=== PATIENT | female | born 1990 | race Caucasian/White ===

== ENCOUNTER → 2024-05-16 16:58 | Outpatient (REF) | payer OTHER, SELFPAY | LOC: RAD 16:58 | PROVIDERS: ATTENDING PHYSICIAN Obstetrics & Gynecology | DX: Z34.90 Encounter for supervision of normal pregnancy, unspecified, unspecified trimester (principal) | CPT/HCPCS: 76801 ==

== ENCOUNTER → 2024-06-11 09:55 | Outpatient (REF) | payer OTHER, SELFPAY | LOC: PNTC 09:55 | PROVIDERS: ATTENDING PHYSICIAN Obstetrics & Gynecology | DX: Z36.0 Encounter for antenatal screening for chromosomal anomalies (principal); Z36.82 Encounter for antenatal screening for nuchal translucency | CPT/HCPCS: 36415; 76801; 76813 ==

== ENCOUNTER → 2024-08-04 15:56 | Outpatient (REF) | payer OTHER, SELFPAY | LOC: PNTC 15:56 | PROVIDERS: ATTENDING PHYSICIAN Obstetrics & Gynecology | DX: O98.519 Other viral diseases complicating pregnancy, unspecified trimester (principal); U07.1 COVID-19 | CPT/HCPCS: 76811; 93976 ==

== ENCOUNTER → 2024-08-29 15:07 | Outpatient (REF) | payer OTHER, SELFPAY | LOC: RAD 15:07 | PROVIDERS: ATTENDING PHYSICIAN Obstetrics & Gynecology | DX: O26.859 Spotting complicating pregnancy, unspecified trimester (principal) | CPT/HCPCS: 76815 ==

== ENCOUNTER → 2024-09-17 07:01 | Outpatient (REF) | payer OTHER, SELFPAY | LOC: PNTC 07:01 | PROVIDERS: ATTENDING PHYSICIAN Obstetrics & Gynecology | DX: U07.1 COVID-19 (principal); O98.519 Other viral diseases complicating pregnancy, unspecified trimester; O43.219 Placenta accreta, unspecified trimester | CPT/HCPCS: 76816 ==

== ENCOUNTER → 2024-10-27 07:02 | Outpatient (REF) | payer OTHER, SELFPAY | LOC: PNTC 07:02 | PROVIDERS: ATTENDING PHYSICIAN Obstetrics & Gynecology | DX: O98.519 Other viral diseases complicating pregnancy, unspecified trimester (principal) | CPT/HCPCS: 76816 ==

== ENCOUNTER → 2024-12-15 15:16 | Outpatient (REF) | payer OTHER, SELFPAY | LOC: PNTC 15:16 | PROVIDERS: ATTENDING PHYSICIAN Obstetrics & Gynecology | DX: O36.8190 Decreased fetal movements, unspecified trimester, not applicable or unspecified (principal) | CPT/HCPCS: 59025; 76815 ==

== ENCOUNTER 2024-12-17 17:14 | Observation (INO) | payer OTHER, SELFPAY ==
[2024-12-17 17:27] VITALS: BP 115/71; BMI 33.9
== END 2024-12-17 18:09 | disposition home or self-care (01) ==
LOC: LDRP 17:14
PROVIDERS: ADMITTING PHYSICIAN Student in an Organized Health Care Education/Training Program; FAMILY PHYSICIAN Obstetrics & Gynecology
DX: O47.1 False labor at or after 37 completed weeks of gestation (principal); Z3A.39 39 weeks gestation of pregnancy; O34.03 Maternal care for unspecified congenital malformation of uterus, third trimester; Q51.810 Arcuate uterus; O34.13 Maternal care for benign tumor of corpus uteri, third trimester; D25.9 Leiomyoma of uterus, unspecified; Z91.040 Latex allergy status; Z86.16 Personal history of COVID-19; Z83.3 Family history of diabetes mellitus
CPT/HCPCS: 36415; 86850; 86900; 86901; G0378

== ENCOUNTER 2024-12-18 00:06 | Inpatient (IN) | payer OTHER, SELFPAY ==
[2024-12-18 00:26] VITALS: BP 123/73; BMI 33.9
[2024-12-18] MEDS: LR 1000 IV ×3 (00:45→12:09)
[2024-12-18] MEDS: STADOL 1 MG IV ×2 (01:06→03:46)
[2024-12-18 01:15] LABS: % Basophils 0.3 % (0-2); % Eosinophils 0.7 % (0-6); % Immature Granulocytes 1.1 % (0-0.5); % Lymphocytes 23.5 % (20.5-51.1); % Neutrophils 67.4 % (42.2-75.2); Absolute Eosinophils 0.1 10^3/uL (0-0.7); Absolute Immature Granulocytes 0.2 10^3/uL (0-0.05); Absolute Lymphocytes 3.3 10^3/uL (1.2-3.4); Absolute Neutrophils 9.5 10^3/uL (1.4-6.5); Hematocrit 34.7 % (37.0-47.0); Hemoglobin 11.8 g/dL (12.0-16.0); Mean Corpuscular Hgb 29.5 pg (27.0-31.0); Mean Corpuscular Volume 86.8 fL (81.0-99.0); Mean Platelet Volume 10.6 fL (7.4-10.4); Nucleated Red Blood Cells % 0 %; Platelet Count 171 10^3/uL (130-400); Red Cell Dist. Width 12.7 % (11.5-14.5); White Blood Cell Count 14.1 10^3/uL (4.8-10.8)
[2024-12-18] MEDS: ZOFRAN 4 MG IV (12:11)
[2024-12-18] MEDS: SUBLIMAZE 100 MCG EPIDURAL (13:01)
[2024-12-18] MEDS: FENTANYL/BUPIVACAINE 100 EPIDURAL (13:01)
[2024-12-18] MEDS: PITOCIN 30 UNITS/NSS 500 ML IV ×2 (16:30→18:19)
[2024-12-18] MEDS: TYLENOL 1000 MG PO (16:57)
[2024-12-18] MEDS: ANCEF 10 IV (16:57)
[2024-12-18] MEDS: BICITRA 30 ML PO (16:57)
[2024-12-18] MEDS: ZITHROMAX INFUSION 250 IV (17:10)
[2024-12-18 17:39] LABS: Cord ABG Comment CORD BLOOD
[2024-12-18 17:42] LABS: B.E. Cord ABG -1.4 mMOL/L; HCO3 Cord ABG 26.8 mmol/L; PCO2 Cord ABG 57 mmHg; PO2 Cord ABG 22 mmHg; pH Cord ABG 7.28
[2024-12-18] MEDS: TORADOL 15 MG IV (19:29)
[2024-12-19] MEDS: ZOFRAN 4 MG IV ×2 (00:18→06:42)
[2024-12-19] MEDS: TORADOL 15 MG IV ×3 (01:59→14:48)
[2024-12-19 06:48] LABS: Hematocrit 27.5 % (37.0-47.0); Hemoglobin 9.4 g/dL (12.0-16.0); Mean Corp Hgb Conc. 34.2 g/dL (33.0-37.0); Mean Corpuscular Hgb 29.4 pg (27.0-31.0); Mean Corpuscular Volume 85.9 fL (81.0-99.0); Mean Platelet Volume 10.3 fL (7.4-10.4); Platelet Count 149 10^3/uL (130-400); Red Cell Dist. Width 12.6 % (11.5-14.5); White Blood Cell Count 15.5 10^3/uL (4.8-10.8)
[2024-12-19] MEDS: SENOKOT-S 1 TABLET PO (08:20)
[2024-12-19] MEDS: PRENATAL PLUS 1 TABLET PO (08:20)
--- NOTE | 2024-12-19 11:27 | W.PN.ANS.POP ---
Anesthesia Post Operative
- Anesthesia Post Op Note
Vital Signs Stable-See Nursing Note: Yes
Airway Patent: Yes
Adequate Pain Control: Yes
Change in Mental Status: No
Current Postoperative Nausea & Vomiting: No
Anesthesia Complications: No
General Anesthetic Recall: No
Unplanned Admission: No
Post Op Hydration Adequate: Yes
[2024-12-19] MEDS: TYLENOL 650 MG PO (20:47)
[2024-12-19] MEDS: MOTRIN 600 MG PO (20:48)
[2024-12-20] MEDS: TYLENOL 650 MG PO ×2 (03:25→13:48)
[2024-12-20] MEDS: MOTRIN 600 MG PO ×3 (03:25→17:13)
[2024-12-20] MEDS: FEOSOL 325 MG PO (08:12)
[2024-12-20] MEDS: PRENATAL PLUS 1 TABLET PO (08:12)
[2024-12-20] MEDS: SENOKOT-S 1 TABLET PO (08:13)
--- NOTE | 2024-12-20 11:27 | W.DS.TRANS ---
DC Summary - Sponsorship Coordinator
-
Discharge Instructions:
Discharge Diagnosis/Procedures delivered via section, failed
trial of labor after section
Diet No restrictions
Activity No strenuous activity
Driving Restrictions No driving for 2 weeks
Bathing Restrictions OK to Shower
Instructions:
Stand-Alone Forms: [facility] Delivery
Changes to Home Medications: No
Discharge Medications:
DC Medications w/original date entered in [employer]
prenat.vits,bonita,[id number] 1 tab PO DAILY Supplement 06/12/23
acetaminophen 325 mg tablet 650 mg (2 x 325 mg) PO Q4HPRN PRN mild pain #1 tab 12/20/24
ferrous sulfate 325 mg (65 mg iron) tablet (FeroSul) 325 mg PO DAILY #1 tab 12/20/24
ibuprofen 600 mg tablet 600 mg PO Q6HPRN PRN cramps #60 tabs 12/20/24
oxycodone-acetaminophen 5 mg-325 mg tablet 1 tab PO Q4HPRN PRN moderate pain #5 tabs 12/20/24
Home Medication Changes
Pending Results: No
--- NOTE | 2024-12-20 11:39 | W.DCSUMMARY ---
Discharge Summary
Discharge Data
Date of Admission: 12/18/24
Date of Discharge: 12/20/24
-
Pending Results: No
Hospital Course
Patient is a 34yo who presented to Labor and Delivery on 12/18 with complaints of contractions. She has a history of one prior section for breech presentation and desired a trial of labor after section. She was aware of the
risks and consent was previously signed in the office. On admission, she was 1-2/80/-3. At 0600, she spontaneously ruptured for meconium stained amniotic fluid. Throughout the day, she progressed with 5/100/-2. After several hours, her cervical
exam remained unchanged and an IUPC was placed and Pitocin started. At 1650, there was a 4 minute deceleration to the 70s that resolved with usual resuscitative measures. At that time, a repeat section was recommended for non-reassuring
heart tones. Patient underwent a repeat low transverse section on 12/18. There was uterine atony noted during the procedure and she received a dose of methergine with improvement in uterine tone. The QBL for the procedure was 510cc. On
postoperative day one, patient was not able to void and a straight cath had to be performed. She was able to void spontaneously after that. Her hemoglobin was 9.4 and she was started on iron supplementation. On postoperative day two, she was meeting
all postoperative milestones and desired discharge home. Discharge instructions and return precautions were discussed and all questions were answered prior to discharge. She was instructed to follow up in the office in 2 weeks for an incision check.
Discharge Plan
-
Patient Disposition: Home (Routine Discharge)
Discharge Diagnosis/Procedures: delivered via section, failed trial of labor after section
Condition: Good
Diet: No restrictions
Activity: No strenuous activity
Driving Restrictions: No driving for 2 weeks
Bathing Restrictions: OK to Shower
Stand Alone Forms: [facility] Delivery
Referrals:
Elvira Gupta DO [Family Provider] - in two weeks
Prescriptions:
New
acetaminophen 325 mg Tablet
650 mg PO Q4HPRN PRN (Reason: mild pain) Qty: 1 0RF
oxycodone-acetaminophen 5-325 mg Tablet
1 tab PO Q4HPRN PRN (Reason: moderate pain) Qty: 5 0RF
ferrous sulfate [FeroSul] 325 mg (65 mg iron) Tablet
325 mg PO DAILY Qty: 1 0RF
ibuprofen 600 mg Tablet
600 mg PO Q6HPRN PRN (Reason: cramps) Qty: 60 0RF
Continued
prenat.vits,bonita,[id number] Tablet
1 tab PO DAILY
Discharge Orders:
Discharge Patient (As Directed); Ordered 12/20/24
Ordered By: Elvira Gupta
Discharge Date and Time
Print Language: ALGERIAN
== END 2024-12-20 17:45 | disposition home or self-care (01) | DRG 788 ==
LOC: LDRP 00:06
PROVIDERS: Obstetrics & Gynecology; ADMITTING PHYSICIAN Student in an Organized Health Care Education/Training Program
PROC: 10D00Z1 Extraction of Products of Conception, Low, Open Approach (ICD-10-PCS; 2024-12-18)
DX: O48.0 Post-term pregnancy (principal); Z3A.40 40 weeks gestation of pregnancy; Z37.0 Single live birth; O34.211 Maternal care for low transverse scar from previous cesarean delivery; O76 Abnormality in fetal heart rate and rhythm complicating labor and delivery; O66.41 Failed attempted vaginal birth after previous cesarean delivery; O62.2 Other uterine inertia; O69.81X0 Labor and delivery complicated by cord around neck, without compression, not applicable or unspecified; O77.0 Labor and delivery complicated by meconium in amniotic fluid; O34.13 Maternal care for benign tumor of corpus uteri, third trimester; D25.9 Leiomyoma of uterus, unspecified; O90.81 Anemia of the puerperium; D64.9 Anemia, unspecified; O34.03 Maternal care for unspecified congenital malformation of uterus, third trimester; Q51.810 Arcuate uterus; Z86.16 Personal history of COVID-19; Z91.040 Latex allergy status; Z83.3 Family history of diabetes mellitus
CPT/HCPCS: 88307; 82803; 85025; 85027; 86780; 86850; 86900; 86901